=== PATIENT | male | born 1970 | race Caucasian/White ===

== ENCOUNTER 2024-12-27 19:23 | Emergency (ER) | payer BC, SELFPAY ==
[2024-12-27] VITALS (8 sets, daily range): BP systolic 87–104; BP diastolic 63–74; BMI 31.4
--- NOTE | 2024-12-27 19:47 | ED.GENMED ---
History of Present Illness
General
Chief Complaint: Alcohol Problem
Source: patient and other (Significant other)
Exam Limitations: none
Time Seen by Provider: 12/27/24 19:32
History of Present Illness
History of Present Illness:
53-year-old male presents wanting help for alcohol issues. This been going on for a long time. States this was prompted today after discussing with his children who all said alcohol is his main issue and he needs help. Denies any withdrawal
symptoms denying shakiness jitteriness hallucinations nausea vomiting. Denies suicidal ideation or plan. He just wants help for his alcohol and is willing to go inpatient. He is very functioning. He is a [employer].
Past History
Past History
ED Past Medical History: HTN and Hypercholesterolemia
ED Past Surgical History: Other (Hernia surgery)
Review of Systems
Review of Systems
All Other Systems: Not applicable
Respiratory: Reports no symptoms
Cardiac: Reports no symptoms
ABD/GI: Reports other (Weeks ago had blood in his stool. Resolved)
Phy Exam
Physical Exam
Physical Exam:
GENERAL: Alert and oriented in no apparent distress
EYE: Orbits normal.
NECK: Supple, no significant adenopathy.
ENT: Pharynx without erythema
CARDIAC: Mildly tachycardic and regular no murmur
LUNGS: Clear breath sounds,normal
ABDOMEN: Soft, without focal tenderness or distention
NEUROLOGICAL: Alert and oriented , grossly non-focal
SKIN: Warm and dry, no rash or lesion, no discoloration, skin intact.
MUSCULOSKELETAL: No edema,no deformity.Good color
PSYCH: Normal and appropriate interaction.
Scores
Withdrawal Assessment of Alcohol
Withdrawal Assessment Completed?: Not applicable
Course
Orders/Labs/Results
Orders:
Orders
12/27/24 19:47
IV Insert/Care/Rem.- Treatment PRN
0.9% Sodium Chloride 1000 ml [Nss] 1,000 ml IV BOLUS
12/27/24 20:03
Complete Blood Count/With Diff Urgent
Comprehensive Metabolic Panel Urgent
12/27/24 21:30
0.9% Sodium Chloride 1000 ml [Nss] 1,000 ml Mvi, Adult [Multivitamin] 10 ml Thiamine Injection 100 mg IV 250 mls/hr
0.9% Sodium Chloride 1000 ml [Nss] 1,000 ml IV BOLUS
0.9% Sodium Chloride 1000 ml [Nss] 1,000 ml IV BOLUS
12/27/24 22:00
0.9% Sodium Chloride 1000 ml [Nss] 1,000 ml Mvi, Adult [Multivitamin] 10 ml Thiamine Injection 100 mg IV 250 mls/hr
Abnormal Lab Results
12/27/24
20:03
MPV 10.9 H fL
(7.4-10.4)
Abs Immat Gran (auto) 0.1 H 10^3/uL
(0-0.05)
Absolute Monos (auto) 0.8 H 10^3/uL
(0.1-0.6)
Immature Gran % 0.6 H %
(0-0.5)
Monocytes % 10.4 H %
(1.7-9.3)
Carbon Dioxide 21 L mmol/L
(22-30)
Glucose 103 H mg/dl
(70-99)
ALT 51 H U/L
(0-50)
12/27/24 20:03
12/27/24 20:03
Vital Signs
Initial and Last Documented VS:
Initial Vital Signs
Temp Pulse Resp BP Pulse Ox
98.3 F 110 18 96/73 94
12/27/24 19:25 12/27/24 19:25 12/27/24 19:25 12/27/24 19:25 12/27/24 19:25
Last Documented Vital Signs
Temp Pulse Resp BP Pulse Ox
98.4 F 90 18 123/68 91
12/28/24 16:56 12/28/24 18:00 12/27/24 19:25 12/28/24 16:00 12/28/24 17:30
MDM/Problems Addressed
Differential Diagnosis Includes:
Patient presents requesting help for his alcohol abuse disorder. Very cooperative. Very friendly. Functioning denying suicidal ideation or plan or any homicidal ideation or plan. Not describing withdrawal symptoms. No acute medical issues. We
will check routine labs give a liter of fluid contact [facility]
*Pulse Oximetry
SaO2: 94
Oxygen Mode of Delivery: Room air
Patient hypoxic: no
*Critical Care Note
Total Time (30-74mins, 75-104mins- exclusive of procedures): Not Applicable
ED Attending Note
-
Portions of this chart may have been created with voice recognition software.� Occasional wrong word or��sound alike� substitutions may have occurred due to the inherent limitations of voice recognition software.
Discharge Plan
Departure
Patient Disposition: Acute Rehab Facility
Date of Disposition: 12/28/24
Time of Disposition: 13:12
Discharge Problem:
Alcohol use disorder
Instructions: Alcohol Use Disorder (DC)
Referrals:
Tee Harding MD [Family Provider, [facility]] - Follow up in 2-3 days
Activity Restrictions/Additional Instructions:
Further care is to be managed by [facility]. Return here if worse or other concerns.
Interventions
Interventions:
*Risk Screen - Suicide Last Done: 12/27/24 19:25
*General Assessment Last Done: 12/27/24 19:25
*Neglect/Abuse Screening Last Done: 12/27/24 19:25
*ED- Fall Risk Assessment Last Done: 12/27/24 19:53
*ED COVID-19 Vaccine History Last Done: 12/27/24 19:53
*Nursing Disposition Last Done: 12/28/24 19:17
ED- Neurological Assessment Last Done: 12/27/24 20:01
ED-Psychological Assessment Last Done: 12/27/24 20:01
Discharge Date and Time
Discharge Date/Time: 12/28/24 19:18
Print Language: KYRGYZ
--- NOTE | 2024-12-27 20:08 | ED TECH ---
Called [facility] per Dr. Jovel's request and was informed by Aletha from [facility], they are no longer available after 8pm on weekends. The answering service was not working so Aletha took down the patients information and this [facility] faxed over a facesheet.
The PT is on the morning report for SaturdayDec 28.
[2024-12-27] MEDS: NSS 1000 IV ×2 (20:10→21:30)
[2024-12-27 20:30] LABS: Hematocrit 42.4 % (39.0-52.0); Hemoglobin 14.9 g/dL (13.0-18.0); Mean Corp Hgb Conc. 35.1 g/dL (33.0-37.0); Mean Corpuscular Volume 88.0 fL (80.0-94.0); Nucleated Red Blood Cells % 0 % (-); Platelet Count 253 10^3/uL (130-400); Red Cell Dist. Width 12.6 % (11.5-14.5)
[2024-12-27 20:55] LABS: ALT (SGPT) 51 U/L (0-50); AST (SGOT) 38 U/L (17-59); Albumin 4.9 g/dl (3.5-5.0); Alkaline Phosphatase 54 U/L (38-126); Blood Urea Nitrogen 10 mg/dl (9-20); Calcium 9.7 mg/dl (8.4-10.2); Carbon Dioxide 21 mmol/L (22-30); Chloride 107 mmol/L (98-107); Estimated Creatinine Clearance > 125 ml/min; Glucose 103 mg/dl (70-99); Potassium 4.0 mmol/L (3.5-5.1); Sodium 141 mmol/L (135-145); Total Protein 7.3 g/dl (6.3-8.2); eGFR > 60.00
[2024-12-27] MEDS: MULTIVITAMIN 1011 ML IV (22:28)
[2024-12-27] MEDS: MULTIVITAMIN 1011 MG IV (22:28)
[2024-12-28] VITALS (17 sets, daily range): BP systolic 82–145; BP diastolic 16–108
== END 2024-12-28 19:18 ==
LOC: EMR 19:23
PROVIDERS: EMERGENCY PHYSICIAN Emergency Medicine; FAMILY PHYSICIAN Family Medicine
DX: F10.10 Alcohol abuse, uncomplicated (principal); I10 Essential (primary) hypertension; E78.00 Pure hypercholesterolemia, unspecified
CPT/HCPCS: 99285; 96365; 96366 ×2; 96361; 80053; 85025